=== PATIENT | female | born 1940 ===

== ENCOUNTER 2019-12-10 14:22 | Emergency (ER) | payer SELFPAY ==
--- NOTE | 2019-12-10 15:02 | Emergency Department Report ---
Blank Doc - Documentation Documentation: 79-year-old female that presents with hypotension. Had a peg tube procedure t [facility] in [place]. This initial assessment/diagnostic orders/clinical plan/treatment(s) is/are subject to change based on patient's health status, clinical progression and re- assessment by fellow clinical providers in the ED. Further treatment and workup at subsequent clinical providers discretion. Patient/guardians urged not to elope from the ED as their condition may be serious if not clinically assessed and managed. Initial orders include: 1- Patient sent to MAIN ED for further evaluation and treatment 2- labs
[2019-12-10 16:01] LABS: Hematocrit 31.5 % (30.3-42.9); Hemoglobin 10.6 gm/dl (10.1-14.3); Mean Corpuscular HGB Conc 34 % (30-34); Mean Corpuscular Volume 89 fl (79-97); Platelet Count 263 K/mm3 (140-440); Red Blood Count 3.53 M/mm3 (3.65-5.03); Red Cell Distribution Width 16.5 % (13.2-15.2)
[2019-12-10 16:08] LABS: INR 1.05 (0.87-1.13)
[2019-12-10 16:24] LABS: Alanine Aminotransferase 5 units/L (7-56); Albumin 3.9 g/dL (3.9-5); BUN/Creatinine Ratio 43; Blood Urea Nitrogen 69 mg/dL (7-17); Hemolysis Index 2
[2019-12-10 17:06] LABS: Basophils % (Manual) 0 % (0.0-1.8); Eosinophils % (Manual) 0 % (0.0-4.3); RBC Morphology Normal; Total Cells Counted 100
[2019-12-10 18:16] VITALS: BP 121/65
--- NOTE | 2019-12-10 18:43 | Emergency Department Report ---
ED General Adult HPI - General Chief complaint: Weakness Stated complaint: WEAKNESS Time Seen by Provider: 12/10/19 15:00 Source: patient, family Mode of arrival: Wheelchair Limitations: No Limitations - History of Present Illness Initial comments: Patient is 79 years old female with history of tongue cancer, breast cancer and lung cancer status post radiation with complication of the right jaw necrosis. Patient is followed by [facility]. Patient went today for a peg tube placement for feeding. Patient complaint of pain after the insertion and she was given fentanyl and immediately blood pressure drop patient received 500 bolus and discharged home. Family stated that she became more weak after. Patient currently stated that she is feeling much better no weakness. Patient denied any chest pain, shortness of breath, cough, abdominal pain, nausea or vomiting. Patient current blood pressure is 115/44. - Related Data Allergies Allergy/AdvReac Type Severity Reaction Status Date / Time No Known Allergies Allergy Unverified 12/10/19 14:35 ED Review of Systems ROS: Stated complaint: WEAKNESS Other details as noted in HPI Comment: All other systems reviewed and negative Constitutional: denies: chills, fever Respiratory: denies: cough, shortness of breath, SOB with exertion, SOB at rest, wheezing Cardiovascular: denies: chest pain, palpitations Gastrointestinal: denies: abdominal pain, nausea, vomiting, diarrhea, constipation, hematemesis, melena, hematochezia Musculoskeletal: denies: back pain Neurological: weakness (Resolved.). denies: headache ED Past Medical Hx - Past Medical History Additional medical history: breast ca,lung ca, throat ca- chemo and radiation, immuno therapy - Social History Smoking Status: Never Smoker Substance Use Type: None ED Physical Exam - General Limitations: No Limitations General appearance: alert, in no apparent distress - Head Head exam: Present: atraumatic, normocephalic, normal inspection - Eye Eye exam: Present: normal appearance - ENT ENT exam: Present: normal exam, normal orophraynx, mucous membranes moist - Neck Neck exam: Present: normal inspection, full ROM. Absent: tenderness, meningismus, lymphadenopathy, thyromegaly - Respiratory Respiratory exam: Present: normal lung sounds bilaterally - Cardiovascular Cardiovascular Exam: Present: regular rate, normal rhythm, normal heart sounds - GI/Abdominal GI/Abdominal exam: Present: soft, normal bowel sounds. Absent: distended, tenderness, guarding, rebound, rigid, organomegaly, mass, bruit, pulsatile mass, hernia - Extremities Exam Extremities exam: Present: normal inspection, full ROM, normal capillary refill. Absent: calf tenderness - Back Exam Back exam: Present: normal inspection, full ROM. Absent: CVA tenderness (R), CVA tenderness (L) - Neurological Exam Neurological exam: Present: alert, oriented X3, CN II-XII intact, normal gait, reflexes normal. Absent: motor sensory deficit - Psychiatric Psychiatric exam: Present: normal mood - Skin Skin exam: Present: warm, intact, normal color ED Course Vital Signs 12/10/19 12/10/19 15:05 18:15 Temperature 97.8 F Pulse Rate 66 69 Respiratory 18 17 Rate Blood Pressure 98/36 Blood Pressure 121/65 [Left] O2 Sat by Pulse 93 99 Oximetry ED Medical Decision Making - Lab Data Result diagrams: 12/10/19 15:38 12/10/19 15:38 - EKG Data -: EKG Interpreted by Mo EKG shows normal: sinus rhythm Rate: normal - EKG Data Interpretation: no acute changes - Medical Decision Making Patient is 79 years old female with history of tongue cancer, breast cancer and lung cancer status post radiation with complication of the right jaw necrosis. Patient is followed by [facility]. Patient went today for a peg tube placement for feeding. Patient complaint of pain after the insertion and s he was given fentanyl and immediately blood pressure drop patient received 500 bolus and discharged home. Family stated that she became more weak after. Patient currently stated that she is feeling much better no weakness. Patient denied any chest pain, shortness of breath, cough, abdominal pain, nausea or vomiting. Patient current blood pressure is 115/44. Labs reviewed and is unremarkable. EKG showed normal sinus rhythm with no ST elevation or depression. Patient and family denied any extra fluid and they wanted to go home. They stated that she looks much better and she just want to go home. I advised them to return to the ER if she started feeling more weak or she started having any other symptoms. Patient also advised to follow-up with her primary care physician in the next 2 to 3 days and to return to the ER if she develop any new symptoms. Critical care attestation.: If time is entered above; I have spent that time in minutes in the direct care of this critically ill patient, excluding procedure time. ED Disposition Clinical Impression: Weakness, Hypotension Disposition: DC-01 TO HOME OR SELFCARE Is pt being admited?: No Condition: Stable Instructions: Weakness (ED), Hypotension (ED), How to Use and Care for Your PEG Tube (ED) Referrals: PRIMARY CARE, [Referring] - 3-5 Days
== END 2019-12-10 19:41 | disposition home or self-care (01) ==
LOC: ED 14:22
DX: I95.9 Hypotension, unspecified (principal); R53.1 Weakness
CPT/HCPCS: 36415; 80053; 84484; 85007; 85025; 85610; 85730; 86850; 86900; 86901; 93005; 93010